=== PATIENT | female | born 1960 | race Caucasian/White ===

== ENCOUNTER 2018-08-20 13:28 | Outpatient (CLI) | payer OTHER ==
--- NOTE | 2018-08-20 13:59 | RAD ---
Lumbar spine 2 views: 08/20/2018 COMPARISON: None HISTORY: Low back pain and radiculopathy FINDINGS: Clips in the right upper quadrant suggest prior cholecystectomy. The patient appears status post laminectomy at L5. Lateral examination demonstrates mild disc space narrowing and degenerative endplate change at L2-3, L3-4, and L4-5. There is facet hypertrophy bilaterally at L4-5 and L5-S1. No acute osseous abnormality is noted. IMPRESSION: Lumbar spine degenerative change as detailed above. If there are radicular symptoms, MRI suggested.
--- NOTE | 2018-08-20 14:25 | MMO ---
Bilateral MAMMO Bilat Screen [facility]. CLINICAL HISTORY: Patient is 58 years old and is seen for screening. The patient has no family history of breast cancer. The patient has no personal history of cancer. VIEWS: The views performed were: bilateral craniocaudal with tomosynthesis and bilateral mediolateral oblique with tomosynthesis. FILMS COMPARED: The present examination has been compared to prior imaging studies performed at [facility] on 10/26/2008, 05/23/2012 and 04/15/2014. MAMMOGRAM FINDINGS: There are scattered fibroglandular densities. There are benign appearing calcifications seen in the right breast. There are no suspicious masses, suspicious calcifications, or new areas of architectural distortion. IMPRESSION: THERE IS NO MAMMOGRAPHIC EVIDENCE OF MALIGNANCY. A ROUTINE FOLLOW-UP MAMMOGRAM IN 1 YEAR IS RECOMMENDED. THE RESULTS OF THIS EXAM WERE SENT TO THE PATIENT. ACR BI-RADS Category 2 - Benign finding MAMMOGRAPHY NOTE: 1. A negative mammogram report should not delay a biopsy if a dominant of clinically suspicious mass is present. 2. Approximately 10% to 15% of breast cancers are not detected by mammography. 3. Adenosis and dense breasts may obscure an underlying neoplasm.
== END 2018-08-20 13:29 | disposition home or self-care (01) ==
LOC: BICMAMMO 13:28
PROVIDERS: ATTEND Nurse Practitioner Family
DX: Z12.31 Encounter for screening mammogram for malignant neoplasm of breast (principal); M47.26 Other spondylosis with radiculopathy, lumbar region; M54.5 Low back pain
CPT/HCPCS: 72100; 77063; 77067

== ENCOUNTER 2018-08-22 12:40 | Observation (INO) | payer OTHER ==
--- NOTE | 2018-08-22 13:14 | RAD ---
XR Chest 1 View Portable HISTORY: Chest pain COMPARISON: None FINDINGS: The heart size is at upper limits of normal. The lungs are well expanded without focal area s of consolidation, pneumothorax or pleural effusions. IMPRESSION: No radiographic evidence of acute cardiopulmonary process.
[2018-08-22 13:32] LABS: #Eosinphils 0.1 thou/uL (0.0-0.7); #Lymphocytes 2.1 thou/uL (1.20-3.40); #Monocytes 0.7 thou/uL (0.11-0.59); #Neutrophils 5.5 thou/uL (1.40-6.50); %Basophils 0.4 % (0.0-1.0); %Eosinophils 0.7 % (0.0-10.0); %Lymphocytes 24.8 % (21.0-51.0); %Monocytes 8.4 % (0.0-10.0); %Neutrophils 65.7 % (42.0-75.0); Mean Corpuscular HGB CONC 34.1 g/dL (32.0-36.0); Mean Corpuscular Hemoglobin 30.8 pg (27.0-31.0); Mean Corpuscular Volume 90.4 fL (78.0-98.0); Mean Platelet Volume 7.5 fL (7.4-10.4); Platelet Count 298 thou/uL (130-400); RBC Distribution Width 11.8 % (11.5-14.5); Red Blood Cell (RBC) Count 4.21 mill/uL (4.20-5.40); White Blood Cell (WBC) Count 8.3 thou/uL (4.8-10.8)
[2018-08-22 13:59] LABS: ALT (SGPT) 27 U/L (8-55); AST (SGOT) 30 U/L (5-34); Albumin 4.5 g/dL (3.5-5.0); Alkaline Phosphatase 84 U/L (40-150); Anion Gap 13 mmol/L (10-20); BUN (Urea Nitrogen) 26 mg/dL (9.8-20.1); Bilirubin, Total 0.5 mg/dL (0.2-1.2); Calc. Creatinine Clearance 0 mL/min (70-130); Calcium 9.8 mg/dL (7.8-10.44); Carbon Dioxide 28 mmol/L (22-29); Chloride 102 mmol/L (98-107); Estimated GFR-MDRD 57; Globulin 2.8 g/dL (2.4-3.5); Glucose 68 mg/dL (70-105); Protein, Total 7.3 g/dL (6.0-8.3); Sodium 139 mmol/L (136-145)
[2018-08-22] MEDS ORDERED: Aspirin Chewable 81 MG TAB ONE (15:30)
[2018-08-22] MEDS ORDERED: Bisacodyl 10 MG SUPP PR PRN (16:32)
[2018-08-22] MEDS ORDERED: Senokot S 8.6-50 MG TAB PO PRN (16:32)
[2018-08-22] MEDS ORDERED: Acetaminophen 325 MG TAB PO PRN (16:32)
[2018-08-22] MEDS ORDERED: Guaifenesin DM 100-10/5 ML UDCUP PO PRN (16:32)
[2018-08-22 16:47] LABS: Troponin I Less than 0.010 ng/mL (< 0.028)
[2018-08-22 17:27] VITALS: BMI 28.3
--- NOTE | 2018-08-22 18:42 | HP ---
REASON FOR ADMISSION: Chest pain. HISTORY OF PRESENTING ILLNESS: The patient gives history of having a heavy feeling in her chest after mowing for last four weeks now. She mowed her yard yesterday for 30 minutes and at the end of it, she was panting and was exhausted. She took some rest and the heavy feeling in her chest got resolved. She also developed shortness of breath yesterday when this happened. This morning, the patient again felt chest tightness and this lasted for a few seconds. It was sharp pain, 6 to 7/10 in intensity and resolved on its own. No palpitations, PND, or orthopnea. She had gone to see her primary care physician in [place] and was told that she is scheduled for a stress test on Saturday. As the frequency of these pains was getting worse, her family advised her to come to the emergency room. No complaints of cough or expectoration. No fever. PAST MEDICAL AND SURGICAL HISTORY: History of GERD, dyslipidemia, restless legs syndrome, cholecystectomy, tubal ligation, prior colonoscopy with no malignancies detected, upper endoscopy in the past with no ulcers, and depression. CURRENT MEDICATIONS: The patient is on, 1. Ropinirole and gabapentin, both for restless legs syndrome. 2. Lexapro 20 mg daily. 3. Pravastatin 10 mg p.o. daily. ALLERGIES: NO KNOWN DRUG ALLERGIES. PERSONAL HISTORY: Does not abuse alcohol or drugs. No history of smoking. FAMILY HISTORY: Mother at the age of 72 years, she had history of heart failure and dementia. Father in his 80s. The patient ambulates by herself and lives with her . CODE STATUS: Full. POWER OF BICYCLE I ASSEMBLER: Her . REVIEW OF SYSTEMS: CONSTITUTIONAL: Negative for weight loss or gain, ability to conduct usual activities. SKIN: Negative for rash, itching. EYES: Negative for double vision, pain. ENT/MOUTH: Negative for nose bleeding, neck stiffness, pain, tenderness. CARDIOVASCULAR: Negative for palpitations, dyspnea on exertion, orthopnea. RESPIRATORY: Negative for shortness of breath, wheezing, cough, hemoptysis, fever or night sweats. GASTROINTESTINAL: Negative for poor appetite, abdominal pain, heartburn, nausea , vomiting, constipation, or diarrhea. GENITOURINARY: Negative for urgency, frequency, dysuria, nocturia. MUSCULOSKELETAL: Negative for pain, swelling. NEUROLOGIC/PSYCHIATRIC: Negative for anxiety, depression. ALLERGY/IMMUNOLOGIC: Negative for skin rash, bleeding tendency. PHYSICAL EXAMINATION: GENERAL: The patient is a 58-year-old female, who is currently not in any acute distress. VITAL SIGNS: Blood pressure 142/84, pulse 80 per minute, respiratory rate 18 per minute, temperature 98.2 degrees Fahrenheit, and saturating 95% on room air. NECK: Supple. No elevated JVD. HEENT: Eyes; extraocular muscles intact. Pupils reacting to light. Oral cavity, mucous membranes are moist. No exudates or congestion. CARDIOVASCULAR: S1 and S2 heard. Regular rhythm. RESPIRATORY: Air entry 1+ bilateral. No rales or rhonchi. ABDOMEN: Soft. Bowel sounds heard. No tenderness, rigidity, or guarding. EXTREMITIES: No peripheral edema or calf tenderness. VASCULAR: Peripheral pulses 1+ bilateral. No ischemic ulcerations or gangrene. CENTRAL NERVOUS SYSTEM: No gross focal deficits noted. The patient is alert, awake, and oriented well. PSYCHIATRIC: The patient's mood is euthymic. No hallucinations or delusions. LABORATORY DATA: Chest x-ray done shows no acute cardiopulmonary process. EKG done shows normal sinus rhythm at 83 beats per minute. EKG is of low voltage and there is questionable Q-waves in leads II, III, aVF. Troponin x2 is negative. BUN 26 , creatinine 0.9, serum glucose 68. Liver enzymes within normal limits. Albumin is 4.5. Electrolytes are stable. Hemoglobin and hematocrit 13 and 38, platelet count 298, white count of 8.3 with 65% neutrophils. CLINICAL IMPRESSION AND PLAN: The patient will be under observation on telemetry for exertional chest pain, rule out acute coronary syndrome. The patient prefers to have exercise stress test and has no issues with her knees to exercise. She will be on aspirin 325 mg daily, Pepcid 20 mg twice daily. We will also continue her restless legs medications including ropinirole, gabapentin, and depression medication Lexapro along with pravastatin for dyslipidemia. The patient can be discharged home if her exercise stress test is normal. Job ID: [id number] [facility]
[2018-08-22] MEDS: Famotidine 20 MG TAB PO SCH (19:49)
[2018-08-22] MEDS ORDERED: Gabapentin 300 MG CAP PO PRN (20:01)
[2018-08-22 20:24] LABS: Troponin I Less than 0.010 ng/mL (< 0.028)
[2018-08-22] MEDS ORDERED: rOPINIRole HCl 1 MG TAB PO SCH (21:00)
[2018-08-23 06:57] LABS: #Basophils 0.1 thou/uL (0.0-0.2); #Eosinphils 0.1 thou/uL (0.0-0.7); #Lymphocytes 2.1 thou/uL (1.20-3.40); #Monocytes 0.6 thou/uL (0.11-0.59); #Neutrophils 3.3 thou/uL (1.40-6.50); %Eosinophils 2.2 % (0.0-10.0); %Lymphocytes 33.7 % (21.0-51.0); %Monocytes 9.3 % (0.0-10.0); %Neutrophils 53.8 % (42.0-75.0); Hemoglobin 12.9 g/dL (12.0-16.0); Mean Corpuscular HGB CONC 33.9 g/dL (32.0-36.0); Mean Corpuscular Hemoglobin 30.9 pg (27.0-31.0); Mean Corpuscular Volume 91.2 fL (78.0-98.0); Mean Platelet Volume 7.6 fL (7.4-10.4); Platelet Count 284 thou/uL (130-400); RBC Distribution Width 11.8 % (11.5-14.5); Red Blood Cell (RBC) Count 4.18 mill/uL (4.20-5.40); White Blood Cell (WBC) Count 6.2 thou/uL (4.8-10.8)
[2018-08-23 07:17] LABS: Anion Gap 11 mmol/L (10-20); BUN (Urea Nitrogen) 27 mg/dL (9.8-20.1); Calc. Creatinine Clearance 78 mL/min (70-130); Calcium 9.2 mg/dL (7.8-10.44); Carbon Dioxide 26 mmol/L (22-29); Cardiac Risk 4.1 (Less than 4.5); Chloride 106 mmol/L (98-107); Cholesterol 210 mg/dl (< 200 Desired); Estimated GFR-MDRD 66; Glucose 102 mg/dL (70-105); HDL Cholesterol 51 mg/dL (>60 Neg Risk); LDL Cholesterol, Calculated 130 mg/dL; Potassium 3.9 mmol/L (3.5-5.1); Sodium 139 mmol/L (136-145); Triglycerides 143 mg/dL (Less than 150)
[2018-08-23] MEDS ORDERED: Enoxaparin Sodium 40 MG/0.4 ML SYRINGE SC SCH (09:00)
[2018-08-23] MEDS ORDERED: Aspirin 325 mg Enteric Coated Tablet PO SCH (09:00)
[2018-08-23] MEDS ORDERED: Escitalopram Oxalate 10 mg Tablet PO SCH (09:00)
[2018-08-23] MEDS ORDERED: Pravastatin Sodium 20 MG TAB PO SCH (09:00)
[2018-08-23] MEDS: Famotidine 20 MG TAB PO SCH (09:08)
[2018-08-23] MEDS ORDERED: ADENOSINE 60 MG/20 ML VIAL ONE (10:37)
--- NOTE | 2018-08-23 13:16 | EKG ---
Test Reason : Blood Pressure : / mmHG Vent. Rate : 083 BPM Atrial Rate : 083 BPM P-R Int : 158 ms QRS Dur : 072 ms QT Int : 388 ms P-R-T Axes : 028 000 009 degrees QTc Int : 455 ms Normal sinus rhythm Cannot rule out Anterior infarct , age undetermined Abnormal ECG Confirmed by HARINDER WARNER D.O. ([id number]), editorial manager MADISON WHITE ([id number]) on 08/23/2018 1:16:11 PM Referred By: Confirmed By:HARINDER WARNER D.O.
[2018-08-23 16:16] VITALS: BP 107/53; TEMP 97.6
--- NOTE | 2018-08-23 17:20 | NM ---
CARDIAC SPECT 08/23/18 HISTORY: 58-year-old female with chest pain and dyslipidemia. TECHNIQUE: A myocardial perfusion scan is performed using the single isotope one day protocol with technetium 99 m-Sestamibi. 9 millicuries were injected intravenously for the rest exam followed by 27 millicuries f or the stress study. Pharmacologic stress with Adenosine was monitored and interpreted by Marii villalba,nurse practitioner. FINDINGS: Homogeneous tracer distribution seen in the myocardial segments on stress and rest images without fix ed or reversible defects. Gated SPECT LVEF: 80%. Wall motion exam: Normal. IMPRESSION: Normal myocardial perfusion scan. POS: JOSE
--- NOTE | 2018-08-24 11:26 | DIS ---
DATE OF ADMISSION: 08/22/2018 DATE OF DISCHARGE: 08/23/2018 DISCHARGE DISPOSITION: Home. PRIMARY DISCHARGE DIAGNOSIS: Chest pain, noncardiac. SECONDARY DISCHARGE DIAGNOSES: 1. History of restless legs syndrome. 2. Dyslipidemia. 3. Depression. PROCEDURES DONE DURING HOSPITALIZATION: The patient has had nuclear stress test done, which showed EF of 80%. There were no fixed or reversible defects. Normal wall motion with normal myocardial perfusion scan. Chest x-ray done showed no acute cardiopulmonary process. H and H 12 and 38, platelet count 284, MCV 91. BUN 27 , creatinine 0.8. Troponin x3 negative. Total cholesterol 210, triglycerides 143 , LDL 130, HDL 51. DISCHARGE MEDICATIONS: 1. Flexeril p.r.n. 2. Escitalopram 10 mg daily. 3. Nexium 20 mg daily. 4. Gabapentin p.r.n. for restless legs. 5. Ropinirole 4 mg p.o. at bedtime for restless legs syndrome. 6. Atorvastatin 40 mg p.o. daily. ALLERGIES: NO KNOWN DRUG ALLERGIES. DISCHARGE PLAN: The patient to follow up with primary care physician in 1 week. BRIEF COURSE DURING HOSPITALIZATION: The patient initially came in with complaints of off and on chest pain, which were exertional. She has had 3 sets of troponin done, which were negative. Nuclear stress test done, showed no evidence of reversible ischemia. She has remained hemodynamically stable during her stay here. The patient needs to follow up with her primary care physician in 1 week. Please note, I have seen and examined the patient on the day of discharge. Job ID: [id number] [facility]
== END 2018-08-23 18:22 | disposition home or self-care (01) ==
LOC: ERS 12:40 → 2SW 17:20
PROVIDERS: ADMIT Internal Medicine; ATTEND Internal Medicine
DX: R07.89 Other chest pain (principal); G25.81 Restless legs syndrome; E78.5 Hyperlipidemia, unspecified; K21.9 Gastro-esophageal reflux disease without esophagitis; F32.9 Major depressive disorder, single episode, unspecified; Z79.899 Other long term (current) drug therapy
CPT/HCPCS: 36415; 71045; 78452; 80048; 80053; 80061; 84484; 85025; 93005; 93017; 96372; A9500; G0378; J0153; J1650

== ENCOUNTER 2018-10-17 13:58 | Outpatient (CLI) | payer OTHER ==
--- NOTE | 2018-10-17 16:38 | RAD ---
4 VIEWS LUMBOSACRAL SPINE: Date: 10/17/18 HISTORY: Low back pain that extends down both legs. FINDINGS: AP, lateral, flexion, and extension views of the lumbosacral spine were performed. The vertebral bodi es demonstrate normal height and alignment without fracture or subluxation. The intervertebral discs are mildly narrowed with small surrounding osteophytes. Alignment is unchanged with flexion and exten jose alfredo. IMPRESSION: Degenerative changes of the lumbar spine with unchanged alignment with bending. POS: PERCY
== END 2018-10-17 13:59 | disposition home or self-care (01) ==
LOC: TBSIIMAG 13:58
PROVIDERS: ATTEND Neurological Surgery
DX: M54.5 Low back pain (principal); M47.816 Spondylosis without myelopathy or radiculopathy, lumbar region
CPT/HCPCS: 72110

== ENCOUNTER 2023-09-03 08:05 | Outpatient (CLI) | payer OTHER | END 2023-09-03 08:06 | disposition home or self-care (01) | LOC: BICMAMMO 08:05 | PROVIDERS: ATTEND Family Medicine | DX: Z12.31 Encounter for screening mammogram for malignant neoplasm of breast (principal); Z13.820 Encounter for screening for osteoporosis; Z78.0 Asymptomatic menopausal state; M81.0 Age-related osteoporosis without current pathological fracture; M85.88 Other specified disorders of bone density and structure, other site | CPT/HCPCS: 77063; 77067; 77080 ==